=== PATIENT | female | born 1985 | race Caucasian/White ===

== ENCOUNTER → 2016-10-30 | Outpatient (CLI) | payer OTHER ==
[2016-10-30 12:48] LABS: CH 29.3; CHCM 34.5; HCT 40.7 % (34.0-46.0); HDW 2.54; HGB 13.6 gm/dL (11.4-16.0); MCH 28.6 pg (25.0-35.0); MCHC 33.5 g/dL (31.0-37.0); MCV 85.3 fL (80.0-100.0); Mean Platelet Volume 7.3; RBC 4.77 m/uL (3.80-5.40); RDW 14.6 % (11.5-15.5); WBC 9.9 k/uL (3.8-10.6)
[2016-10-30 12:57] LABS: Glucose 104 mg/dL (74-99); Non-African American GFR(MDRD) >60 (>60 ml/min/1.73 sqM)
[2016-10-30 13:28] LABS: Hepatitis B Surface Ag Index 0.05
[2016-10-30 20:01] LABS: Treponemal Ab Non-Reactive (Non-Reactive)
== END | disposition home or self-care (01) ==
LOC: LABWHC1 11:58
PROVIDERS: ATTEND Obstetrics & Gynecology
DX: Z34.81 Encounter for supervision of other normal pregnancy, first trimester (principal); Z3A.00 Weeks of gestation of pregnancy not specified
CPT/HCPCS: 36415; 82565; 82947; 85027; 86762; 86780; 86850; 86900; 86901; 87340; 87390

== ENCOUNTER → 2017-03-11 | Outpatient (CLI) | payer OTHER ==
[2017-03-11 10:17] LABS: HCT 35.1 % (34.0-46.0); HGB 11.4 gm/dL (11.4-16.0); MCH 28.8 pg (25.0-35.0); MCHC 32.6 g/dL (31.0-37.0); MCV 88.5 fL (80.0-100.0); Mean Platelet Volume 7.1; Platelet Count 339 k/uL (150-450); RBC 3.96 m/uL (3.80-5.40); RDW 13.7 % (11.5-15.5)
== END | disposition home or self-care (01) ==
LOC: LABWHC1 08:57
PROVIDERS: ATTEND Obstetrics & Gynecology
DX: Z34.82 Encounter for supervision of other normal pregnancy, second trimester (principal); Z3A.00 Weeks of gestation of pregnancy not specified
CPT/HCPCS: 36415; 82950; 85027

== ENCOUNTER 2017-04-28 17:09 | Outpatient (CLI) | payer OTHER ==
[2017-04-28 17:47] VITALS: BP 125/62; PULSE 53; RESP 20; TEMP 97.7
--- NOTE | 2017-05-21 19:12 | P.MSEPDOC ---
Presenting Problems - Arrival Data Date of Arrival on Unit: 04/28/17 Time of Arrival on Unit: 17:13 Mode of Transport: Ambulatory - Complaint OB-Reason for Admission/Chief Complaint: Other Comment: pt feel at around 330 pm on her daughters tricycle denies any direct blows to the abd area Medical History - Information : 3 Para: 1 Term: 1 : 0 Abortions: Spontaneous or Elective: 1 Number of Living Children: 1 - Gestational Age Gestational Age by REYMUNDO (wks/days): 32 Weeks and 3 Days - History Complications: No Care Review of Systems - Review of Systems Constitutional: No problems Breast: No problems ENT: No problems Cardiovascular: No problems Respiratory: No problems Gastrointestinal: No problems Genitourinary: No problems Musculoskeletal: No problems Neurological: No problems Skin: No problems Vital Signs - Temperature Temperature: 97.7 F Temperature Source: Oral - Pulse Right Brachial Pulse Rate: 53 Pulse Assessment Method: Automatic Cuff - Respirations Respiratory Rate: 20 Oxygen Delivery Method: Room Air - Blood Pressure Right Arm Blood Pressure: 125/62 Blood Pressure Mean: 83 Blood Pressure Source: Automatic Cuff Medical Screen Scoring (Pre) - Cervical Exam Dilation: 0 cm = 0 Membranes: Intact - Uterine Contractions Frequency: < 36 weeks = 6 Duration: > 40 seconds = 2 - Maternal Vital Signs Maternal Temperature: N/A Maternal Blood Pressure: N/A Signs of Preeclampsia: N/A Maternal Respirations: N/A - Pain Assessment Pain Scale Used: Numeric (1 - 10) Pain Intensity: 0 Pain Management Goal: 0 Pain Behavior: Vocalization - Assessment Baseline FHR: 140 Heart Rate - NICHD Category: Category I (Normal) = 0 NST: Reactive Position: N/A - Total Score Total Score (Pre): 8 Physician Notification (Pre) - Notification Comment Comment: dr mcgarry at bedside reviewed strip and vag exam done per dr mcgarry pts cervix closed and thick Physician Notification (Post) - Notification Comment Comment: pt discharged to home undelivered with instructions Disposition - Disposition OB Disposition: Discharge to home Discharge Date: 04/28/17 Discharge Time: 18:15 I agree with the RN Medical Screening Exam: Yes Risk & Benefit of care provided described in d/c instruction: Yes Diagnosis: ACUTE PAIN DUE TO TRAUMA
== END 2017-04-28 18:15 | disposition home or self-care (01) ==
LOC: FBPOP 17:09
PROVIDERS: ATTEND Obstetrics & Gynecology
DX: O9A.213 Injury, poisoning and certain other consequences of external causes complicating pregnancy, third trimester (principal); Z3A.32 32 weeks gestation of pregnancy
CPT/HCPCS: 59025; 99213

== ENCOUNTER 2017-06-13 05:51 | Inpatient (IN) | payer OTHER ==
[2017-06-11 14:38] VITALS: BMI 32.2
--- NOTE | 2017-06-12 12:54 | P.HPOB ---
History of Present Illness H&P Date: 06/12/17 Chief Complaint: Pt is presenting for repeat cesearan section. This patient is a pleasant 32 yr EDC 06/20/2017 estimated gestational age 39 weeks who presents to L&D for repeat cesearan section. has been uncomplicated with the exception of macrosomia. Patient had a previous C/ s for macrosomia. Review of Systems Gastrointestinal: Reports heartburn Genitourinary: Reports Menstruation: Reports amenorrhea Past Medical History Past Medical History: No Reported History Additional Past Medical History / Comment(s): mitral valve regurg with frequent PVC's History of Any Multi-Drug Resistant Organisms: None Reported Past Surgical History: Section Additional Past Surgical History / Comment(s): WISDOM TEETH, D&C Past Anesthesia/Blood Transfusion Reactions: No Reported Reaction, Motion Sickness Past Psychological History: No Psychological Hx Reported Smoking Status: Never smoker Past Alcohol Use History: None Reported Additional Past Alcohol Use History / Comment(s): PRIOR TO Past Drug Use History: None Reported - Past Family History Mother Family Medical History: No Reported History Medications and Allergies Home Medications Medication Instructions Recorded Confirmed Type Pnv with Ca,No.72/Iron/FA 1 each PO DAILY 12/12/13 06/11/17 History [ Plus Multivitamin Tab] Allergies Allergy/AdvReac Type Severity Reaction Status Date / Time No Known Allergies Allergy Verified 06/11/17 14:34 Exam - OBG Physical Exam Abdomen: bowel sounds normal, no diffuse tenderness, no bruit present, no guarding noted, no hepatomegaly, no splenomegaly, no mass Vulva: both: normal Vagina: normal moisture, no discharge Cervix: no lesion (Cx was closed in the office), no discharge Results blood work shows: O positive, Rubella Immune, [id number] neg, glucola was normal, GBS negative. Ultrasound shows macrosomia. Assessment and Plan Assessment: This is a pleasant 32 yr old female 39wks gestation who presents for repeat section. She barrett not want a tubal ligation. She and I have discussed this surgery and risks: infection, bleeding, possible injury to bowel /bladder/vessels/other organs. She understands the risk of DVT/PE. All of the patients questions were answered and a written consent obtained. (1) macrosomia during in third trimester Status: Acute Code(s): O36.63X0 - MATERNAL CARE FOR EXCESS GROWTH, THIRD TRIMESTER, UNSP SNOMED Code(s): 289517973 (2) Previous delivery affecting Status: Acute Code(s): O34.219 - MATERNAL CARE FOR UNSP TYPE SCAR FROM PREVIOUS DEL SNOMED Code(s): 516456502
[2017-06-13] MEDS ORDERED: CITRIC ACID-SODIUM CITRATE 15 ML CUP PO ONE (05:57)
[2017-06-13] MEDS ORDERED: LACTATED RINGERS 1,000 ML IV SCH (05:57)
[2017-06-13] MEDS ORDERED: LACTATED RINGERS 1,000 ML IV ONE (05:57)
[2017-06-13 06:21] LABS: Basophils % (A) 0 %; Eosinophils # (A) 0.2 k/uL (0-0.7); Eosinophils % (A) 2 %; HCT 34.2 % (34.0-46.0); Lymphocytes # (A) 1.5 k/uL (1.0-4.8); Lymphocytes % (A) 17 %; MCHC 32.1 g/dL (31.0-37.0); Mean Platelet Volume 7.3; Monocytes # (A) 0.5 k/uL (0-1.0); Monocytes % (A) 5 %; Neutrophils # (A) 6.6 k/uL (1.3-7.7); Neutrophils % (A) 75 %; Platelet Count 319 k/uL (150-450); RBC 4.39 m/uL (3.80-5.40); RDW 15.2 % (11.5-15.5); WBC 8.9 k/uL (3.8-10.6)
[2017-06-13] MEDS ORDERED: ceFAZolin IN SWFI 2 GM/20 ML SYRINGE IVP ONE (07:15)
[2017-06-13] MEDS ORDERED: OXYTOCIN 10 UNIT/ML 1 ML VIAL ONE (07:44)
[2017-06-13] MEDS ORDERED: NALBUPHINE 10 MG/ML AMPUL ONE (07:44)
[2017-06-13] MEDS ORDERED: ONDANSETRON 4 MG/2 ML VIAL ONE (07:44)
[2017-06-13] MEDS ORDERED: MORPHINE SULFATE (PF) 0.3 MG/0.3 ML SYR ONE (07:44)
[2017-06-13] MEDS ORDERED: KETOROLAC 30 MG/ML 1 ML VIAL ONE (07:44)
[2017-06-13] MEDS ORDERED: LANOLIN CREAM 5 GM TUBE TOPICAL PRN (08:27)
[2017-06-13] MEDS ORDERED: KETOROLAC 30 MG/ML 1 ML VIAL IVP PRN (08:27)
[2017-06-13] MEDS ORDERED: ONDANSETRON 4 MG/2 ML VIAL IVP PRN (08:27)
[2017-06-13] MEDS ORDERED: OXYTOCIN 20 UNITS/1000 ML NS 1,000 ML IV SCH (08:27)
[2017-06-13] MEDS ORDERED: NALOXONE 0.4 MG/ML 1 ML VIAL IV PRN (08:27)
[2017-06-13] MEDS ORDERED: ACETAMINOPHEN TAB 325 MG TAB PO PRN (08:27)
[2017-06-13] MEDS ORDERED: METOCLOPRAMIDE 5 MG/ML 2 ML VIAL IVP PRN (08:27)
[2017-06-13] MEDS ORDERED: ZOLPIDEM 5 MG TAB PO PRN (08:27)
[2017-06-13] MEDS ORDERED: diphenhydrAMINE 50 MG/ML 1 ML VIAL IVP PRN (08:27)
[2017-06-13] MEDS ORDERED: SIMETHICONE 80 MG CHEWABLE PO PRN (08:27)
[2017-06-13] MEDS ORDERED: diphenhydrAMINE 25 MG CAP PO PRN (08:27)
--- NOTE | 2017-06-13 08:29 | P.OP ---
Date of Procedure: 06/13/17 Preoperative Diagnosis: #1: 39-0/7 weeks . #2: Previous section desires repeat. #3: macrosomia Postoperative Diagnosis: Same Procedure(s) Performed: Repeat low transverse section. Anesthesia: spinal Surgeon: Logan Paige [employer] Field Coordinator #1: Juli Ramirez Estimated Blood Loss (ml): 800 Pathology: other (Placenta) Condition: stable Disposition: floor Indications for Procedure: Please see dictated H&P for intimate details of this patient's admission. Brief summary this is a pleasant 32-year-old 3 para 1 female 39 weeks gestation admitted for elective repeat section. Patient I have discussed the surgery and risks including risks of infection, bleeding, possible injury bowel, bladder, vessels, and/or other organs. All the patient' s questions have been answered and a written consent is obtained. Operative Findings: This is a vigorous viable male infant Apgars were 8 and 8 delivery time is 0804 hrs. has spontaneous respiration and good cry and grossly appeared normal. Description of Procedure: This patient is taken to the operating room. She previously had a Hernandez catheter placed to straight drain. Patient is set up for spinal anesthetic is administered without incident. With an adequate level of anesthesia she has abdominal prep and drape. Scalpels and taken the previous Pfannenstiel incision is incised. A second scalpel is taken down the fascia and the fascia scored with a knife. Fascial incision extended bilaterally using the Mireles scissors. Fascia is then sharply dissected off the rectus muscles. Rectus muscles are the peritoneum was identified and entered sharply. Peritoneal incision extended superior and inferior without difficulty. Latter blade is then placed. Bladder peritoneum was taken sharply off the lower uterine segment. Scalpels and taken a low transverse uterine incision is made. There is loss of clear fluid. This incision is extended bluntly. Infant's head is then gently delivered through the incision with fundal pressure. Mouth and nose are suctioned. There is a nuchal cord which is very loose and reduced. We then deliver the rest this infant's body. This is a vigorous viable male Apgars are 8 and 8 delivery time is 0804 hrs. After delivery of the the umbilical cord is doubly clamped and cut appears to be trivascular. The placenta is then manually extracted intact. The uterus is then externalized and uterine incision is then closed using 0 Vicryl running locked fashion. Excellent hemostasis is noted bladder peritoneum was then closed using a 3-0 Vicryl in a running fashion. Excess fluid is removed from the abdomen and pelvis. Uterus tubes and ovaries appear normal for term gestation. Uterus placed back into the abdomen. This time the parietal peritoneum was identified and closed using 0 Vicryl running fashion. Rectus muscles are reapproximated in 0 Vicryl interrupted fashion. Fascia is then closed using 0 PDS. Fascial incision is intact and hemostatic. Subcutaneous tissues and closed using a 3-0 Vicryl. Skin is and closed using aicha. All counts are correct 3. There are no complications. Patient is taken to her birthing suite in satisfactory condition.
[2017-06-13] MEDS: SENNOSIDES-DOCUSATE SODIUM 1 EACH TAB PO SCH (09:07)
[2017-06-13] MEDS: LACTATED RINGERS 1,000 ML IV SCH ×2 (15:15→16:36)
[2017-06-14] MEDS: SENNOSIDES-DOCUSATE SODIUM 1 EACH TAB PO SCH ×3 (01:57→21:11)
[2017-06-14] MEDS: IBUPROFEN 600 MG TAB PO PRN ×3 (02:03→18:20)
--- NOTE | 2017-06-14 06:43 | P.PNOBGPC ---
Subjective - Subjective Patient reports: Reports appetite normal, Reports voiding normally, Reports pain well controlled, Reports ambulating normally : doing well Objective - Vital Signs Latest vital signs: Vital Signs Temp Pulse Pulse Resp BP Pulse Ox 06/14/17 06:00 16 06/14/17 04:00 97.8 F 44 L 16 100/51 100 06/14/17 02:00 16 06/14/17 00:00 98.7 F 47 L 16 104/50 100 06/13/17 22:00 16 100 06/13/17 20:00 98.1 F 54 L 16 119/72 100 06/13/17 18:00 16 06/13/17 16:00 98.3 F 49 L 16 112/60 99 06/13/17 14:00 16 06/13/17 11:06 96.4 F L 42 L 16 102/51 99 06/13/17 10:30 88 16 103/57 100 06/13/17 10:00 65 16 101/55 99 06/13/17 09:30 52 L 16 110/56 99 06/13/17 09:15 46 L 16 109/55 99 06/13/17 09:00 81 16 105/59 99 06/13/17 08:45 58 L 16 94/52 98 06/13/17 08:30 96.8 F L 54 L 54 L 16 102/63 Intake and Output 06/13/17 06/13/17 06/14/17 14:59 22:59 06:59 Intake Total 800 Output Total 800 1300 Balance -800 -1300 800 Intake: Oral 800 Output: Urine 800 1300 Uretheral (Hernandez) 200 Other: # Voids 1 - Exam Lungs: bilateral: normal Chest: Normal S1, Normal S2 Extremities: Present: normal Abdomen: Present: normal appearance, soft. Absent: distention, tenderness Incision: Present: normal, dry, intact Uterus: Present: normal, firm Assessment and Plan Assessment: Postoperative day #1. Patient is resting without complaints. She is ambulating and urinating without difficulty. She's tolerating regular diet. Vital signs are stable she is afebrile. Incision is intact and dry. CBC is pending. My impression this is a normal postoperative course. Plan is to continue routine postoperative care, allow the patient to shower, and check a CBC. Most likely will go home tomorrow. (1) macrosomia during in third trimester Current Visit: No Status: Acute Code(s): O36.63X0 - MATERNAL CARE FOR EXCESS GROWTH, THIRD TRIMESTER, UNSP SNOMED Code(s): 551933242 (2) Previous delivery affecting Current Visit: Yes Status: Acute Code(s): O34.219 - MATERNAL CARE FOR UNSP TYPE SCAR FROM PREVIOUS DEL SNOMED Code(s): 162575955
[2017-06-14 08:59] LABS: Basophils % (A) 0 %; Eosinophils # (A) 0.1 k/uL (0-0.7); Eosinophils % (A) 0 %; HCT 31.1 % (34.0-46.0); HGB 10.2 gm/dL (11.4-16.0); Hypochromasia Slight; Lymphocytes # (A) 1.4 k/uL (1.0-4.8); Lymphocytes % (A) 11 %; MCHC 32.7 g/dL (31.0-37.0); MCV 79.5 fL (80.0-100.0); Mean Platelet Volume 7.4; Monocytes # (A) 0.4 k/uL (0-1.0); Monocytes % (A) 4 %; Neutrophils # (A) 10.1 k/uL (1.3-7.7); Neutrophils % (A) 83 %; Platelet Count 323 k/uL (150-450); Poikilocytosis Slight; RBC 3.91 m/uL (3.80-5.40); RDW 15.4 % (11.5-15.5); WBC 12.2 k/uL (3.8-10.6)
--- NOTE | 2017-06-14 16:51 | P.PN ---
Progress Note - Text Progress Note Date: 06/14/17 Postoperative day 1 status post section under spinal anesthesia, and intrathecal morphine given for postoperative analgesia, patient doing well, there is no anesthesia related complications, Patient had no headache, vital signs stable , Assessment and plan= postop day 1 status post , doing well there is no anesthesia related complication.
[2017-06-15] MEDS: IBUPROFEN 600 MG TAB PO PRN ×2 (03:06→09:09)
--- NOTE | 2017-06-15 06:33 | P.PNOBGPC ---
Subjective - Subjective Patient reports: Reports appetite normal, Reports voiding normally, Reports pain well controlled, Reports ambulating normally : doing well Objective - Vital Signs Latest vital signs: Vital Signs Temp Pulse Pulse Resp BP Pulse Ox 06/14/17 23:33 98.4 F 85 16 103/62 100 06/14/17 15:11 84 16 127/69 98 06/14/17 07:30 97.8 F 48 L 16 114/52 Intake and Output 06/14/17 06/14/17 06/15/17 14:59 22:59 06:59 Intake Total 1000 Balance 1000 Intake: Oral 1000 - Exam Lungs: bilateral: normal Chest: Normal S1, Normal S2 Extremities: Present: normal Abdomen: Present: normal appearance, soft. Absent: distention, tenderness Incision: Present: normal, dry, intact Uterus: Present: normal, firm - Labs Labs: Abnormal Lab Results - Last 24 Hours (Table) 06/14/17 Range/Units 08:04 WBC 12.2 H (3.8-10.6) k/uL Hgb 10.2 L (11.4-16.0) gm/dL Hct 31.1 L (34.0-46.0) % MCV 79.5 L (80.0-100.0) fL Neutrophils # 10.1 H (1.3-7.7) k/uL Assessment and Plan Assessment: Post operative day #2. Patient's resting without complaints wishes to go home. Vital signs are stable and she is afebrile. Uterus is firm nontender and her incision is intact and dry. CBC yesterday was normal postoperative. Plan today is to continue routine postoperative care discharge home later today (1) macrosomia during in third trimester Current Visit: No Status: Acute Code(s): O36.63X0 - MATERNAL CARE FOR EXCESS GROWTH, THIRD TRIMESTER, UNSP SNOMED Code(s): 627347174 (2) Previous delivery affecting Current Visit: Yes Status: Acute Code(s): O34.219 - MATERNAL CARE FOR UNSP TYPE SCAR FROM PREVIOUS DEL SNOMED Code(s): 921769485
--- NOTE | 2017-06-15 06:42 | P.DS ---
Providers Date of admission: 06/13/17 05:51 Expected date of discharge: 06/15/17 Attending physician: Logan Paige Primary care physician: Stated None - Discharge Diagnosis(es) (1) macrosomia during in third trimester Current Visit: No Status: Acute (2) Previous delivery affecting Current Visit: Yes Status: Acute Hospital Course: Please see dictated H&P for intimate details of this patient's admission. Brief summary this is a pleasant 32-year-old 3 para 1 female 39 weeks gestation admitted to labor and delivery for elective repeat section. Patient underwent repeat low transverse section for viable male infant. Please see dictated delivery note. hemorrhage 2 patient's felt be stable for discharge home follow up with me in 1 week. Procedures: Repeat low transverse section Patient Condition at Discharge: Good Plan - Discharge Summary Discharge Rx Participant: Yes New Discharge Prescriptions: New Ibuprofen [Motrin] 600 mg PO Q6HR PRN #40 tab PRN Reason: Mild Pain Or Fever >= 100.5 No Action Pnv with Ca,No.72/Iron/FA [ Plus Multivitamin Tab] 1 each PO DAILY Discharge Medication List Pnv with Ca,No.72/Iron/FA [ Plus Multivitamin Tab] 1 each PO DAILY 12/12 [History] Ibuprofen [Motrin] 600 mg PO Q6HR PRN #40 tab 06/15/17 [Rx] Follow up Appointment(s)/Referral(s): Logan Paige MD [STAFF PHYSICIAN] - 06/23/17 1:30 pm (Patient also has a visit on July 31 at 9:15 AM.) Patient Instructions/Handouts: (DC) Activity/Diet/Wound Care/Special Instructions: No strenuous activity or heavy lifting for 6 weeks. No intercourse for 6 weeks. Please call if any fever, chills, excessive vaginal bleeding, and/or abdominal pain. Discharge Disposition: HOME SELF-CARE
[2017-06-15 07:43] VITALS: BP 123/56; PULSE 45; RESP 15; TEMP 97.5
[2017-06-15] MEDS: SENNOSIDES-DOCUSATE SODIUM 1 EACH TAB PO SCH (09:09)
== END 2017-06-15 11:48 | disposition home or self-care (01) | DRG 765 ==
LOC: 4FBP 05:51
PROVIDERS: ADMIT Obstetrics & Gynecology; ATTEND Obstetrics & Gynecology
PROC: 10D00Z1 Extraction of Products of Conception, Low, Open Approach (ICD-10-PCS; principal; 2017-06-13 08:00)
DX: O36.63X0 Maternal care for excessive fetal growth, third trimester, not applicable or unspecified (principal); O99.12 Other diseases of the blood and blood-forming organs and certain disorders involving the immune mechanism complicating childbirth; Z37.0 Single live birth; O34.211 Maternal care for low transverse scar from previous cesarean delivery; I34.0 Nonrheumatic mitral (valve) insufficiency; I49.3 Ventricular premature depolarization; O69.81X0 Labor and delivery complicated by cord around neck, without compression, not applicable or unspecified; Z3A.39 39 weeks gestation of pregnancy
CPT/HCPCS: 85025; 86850; 86900; 86901; 88307

== ENCOUNTER 2019-10-08 09:15 | Outpatient (CLI) | payer OTHER ==
[2019-10-08 10:17] LABS: Basophils % (A) 0 %; Eosinophils # (A) 0.1 k/uL (0-0.7); Eosinophils % (A) 1 %; HCT 29.2 % (34.0-46.0); HGB 9.9 gm/dL (11.4-16.0); Lymphocytes # (A) 1.7 k/uL (1.0-4.8); Lymphocytes % (A) 22 %; MCH 29.8 pg (25.0-35.0); MCHC 33.9 g/dL (31.0-37.0); MCV 87.8 fL (80.0-100.0); Mean Platelet Volume 7.4; Monocytes # (A) 0.3 k/uL (0-1.0); Monocytes % (A) 4 %; Neutrophils # (A) 5.6 k/uL (1.3-7.7); Neutrophils % (A) 71 %; Platelet Count 288 k/uL (150-450); Poikilocytosis Slight; RBC 3.33 m/uL (3.80-5.40); RDW 14.6 % (11.5-15.5); WBC 7.9 k/uL (3.8-10.6)
[2019-10-08 10:18] LABS: Appearance,Urine Clear (Clear); Bilirubin,Urine Negative (Negative); Blood,Urine Negative (Negative); Color,Urine Light Yellow; Glucose,Urine (UA) Negative (Negative); Ketones,Urine Negative (Negative); Leukocyte Esterase,Urine Negative (Negative); Nitrite,Urine Negative (Negative); PH, Urine 6.5 (5.0-8.0); Protein,Urine Negative (Negative); Specific Gravity,Urine 1.007 (1.001-1.035); Urobilinogen,Urine <2.0 mg/dL (<2.0)
[2019-10-08 10:31] LABS: ALT 11 U/L (4-34); AST 20 U/L (14-36); African American GFR (CKD) >90 (>60 ml/min/1.73 sqM); Blood Urea Nitrogen 4 mg/dL (7-17); LDH 409 U/L (313-618); Non-African American GFR(CKD) >90 (>60 ml/min/1.73 sqM); Protein/Creatinine Ratio,Urine 0.606; Uric Acid 3.8 mg/dL (3.7-7.4)
--- NOTE | 2019-10-09 07:24 | P.MSEPDOC ---
Presenting Problems - Arrival Data Date of Arrival on Unit: 10/08/19 Time of Arrival on Unit: 09:15 Mode of Transport: Ambulatory - Complaint OB-Reason for Admission/Chief Complaint: PIH Comment: pt sent over from the office for pih workup with written orders Medical History - Gestational Age Gestational Age by REYMUNDO (wks/days): 29 Weeks and 2 Days Review of Systems - Review of Systems Constitutional: No problems Breast: No problems ENT: No problems Cardiovascular: No problems Respiratory: No problems Gastrointestinal: No problems Genitourinary: No problems Musculoskeletal: No problems Neurological: No problems Skin: No problems Physician Notification (Pre) - Physician Notified Physician Notified Date: 10/08/19 Physician Notified Time: 11:00 New Order Received: Yes - Notification Comment Comment: discharged home, follow up in 2 weeks Disposition - Disposition OB Disposition: Triage, Discharge to home, Written follow up instructions reviewed Discharge Date: 10/08/19 Discharge Time: 11:05 I agree with the RN Medical Screening Exam: Yes Risk & Benefit of care provided described in d/c instruction: Yes Diagnosis: GESTATIONAL HTN W/O SIGNIFICANT PROTEINURIA, THIRD TRIMESTER
== END 2019-10-08 11:05 | disposition home or self-care (01) ==
LOC: FBPOP 09:15
PROVIDERS: ATTEND Obstetrics & Gynecology
DX: O13.3 Gestational [pregnancy-induced] hypertension without significant proteinuria, third trimester (principal); Z3A.29 29 weeks gestation of pregnancy
CPT/HCPCS: 59025; 81003; 82565; 82570; 83615; 84156; 84450; 84460; 84520; 84550; 85025

== ENCOUNTER 2019-12-15 05:50 | Inpatient (IN) | payer OTHER ==
--- NOTE | 2019-12-14 06:50 | P.HPOB ---
History of Present Illness H&P Date: 12/14/19 Chief Complaint: Repeat section and tubal ligation This patient is a pleasant 34-year-old 4 para 2 female estimated date of confinement 12/22/2019 estimated gestational age 39 weeks who presents to labor and delivery for requested repeat section and also requesting permanent sterilization. Patient's care has been uncomplicated. Patient's had 2 previous sections for macrosomia. Review of Systems Genitourinary: Reports Menstruation: Reports amenorrhea Past Medical History Past Medical History: No Reported History Additional Past Medical History / Comment(s): mitral valve regurg with frequent PVC's History of Any Multi-Drug Resistant Organisms: None Reported Past Surgical History: Section Additional Past Surgical History / Comment(s): WISDOM TEETH, D&C Past Anesthesia/Blood Transfusion Reactions: No Reported Reaction, Motion Sickness Past Psychological History: No Psychological Hx Reported Smoking Status: Never smoker Past Alcohol Use History: None Reported Past Drug Use History: None Reported - Past Family History Mother Family Medical History: No Reported History Medications and Allergies Home Medications Medication Instructions Recorded Confirmed Type Pnv with Ca,No.72/Iron/FA 1 each PO DAILY 12/12/13 10/08/19 History [ Plus Multivitamin Tab] Acetaminophen [Tylenol] 1,000 mg PO QID 10/08/19 10/08/19 History Allergies Allergy/AdvReac Type Severity Reaction Status Date / Time No Known Allergies Allergy Verified 10/08/19 09:27 Exam - OBG Physical Exam Abdomen: bowel sounds normal, no diffuse tenderness, no bruit present, no guarding noted, no hepatomegaly, no splenomegaly, no mass Vulva: both: normal Vagina: normal moisture, no discharge Cervix: no lesion, no discharge Uterus: enlarged (Fundal height is slightly larger than gestational age) Results blood work shows she is O positive, rubella immune, RPR nonreactive, hepatitis B negative, HIV is nonreactive, Glucola was normal, group B strep was negative, ultrasounds shows normal anatomy. Assessment and Plan Assessment: This is a pleasant 34-year-old 4 para 2 female 39-0/7 weeks gestation is admitted to labor and delivery for elective repeat section and also requesting permanent sterilization. Plan is repeat low transverse section and bilateral partial salpingectomy. Patient understands this surgery and risks including risks of infection, bleeding, possible injury bowel, bladder, vessels, and/or other organs. She also understands a tubal ligation is considered permanent although there is a failure rate of less than 5 per thousand procedures done. Patient is stands risk of DVT and pulmonary embolism. All the patient's questions are answered and a written consent is obtained. (1) 39 weeks gestation of Status: Acute Code(s): Z3A.39 - 39 WEEKS GESTATION OF SNOMED Code(s): 51056838 (2) Previous delivery affecting Status: Acute Code(s): O34.219 - MATERNAL CARE FOR UNSP TYPE SCAR FROM PREVIOUS DEL SNOMED Code(s): 234175104 (3) Family planning Status: Acute Code(s): Z30.09 - ENCOUNTER FOR OTH GENERAL CNSL AND ADVICE ON CONTRACEPTION SNOMED Code(s): 877709881
[2019-12-15] MEDS ORDERED: CITRIC ACID-SODIUM CITRATE 15 ML CUP PO ONE (06:02)
[2019-12-15] MEDS ORDERED: LACTATED RINGERS 1,000 ML IV ONE (06:02)
[2019-12-15] MEDS: LACTATED RINGERS 1,000 ML IV SCH ×3 (06:13→15:46)
[2019-12-15 06:30] LABS: Basophils % (A) 0 %; Eosinophils # (A) 0.1 k/uL (0-0.7); Eosinophils % (A) 1 %; HCT 33.7 % (34.0-46.0); HGB 10.7 gm/dL (11.4-16.0); Hypochromasia Moderate; Lymphocytes # (A) 1.8 k/uL (1.0-4.8); Lymphocytes % (A) 23 %; MCH 26.2 pg (25.0-35.0); MCHC 31.6 g/dL (31.0-37.0); Mean Platelet Volume 7.4; Monocytes # (A) 0.4 k/uL (0-1.0); Monocytes % (A) 5 %; Neutrophils # (A) 5.4 k/uL (1.3-7.7); Neutrophils % (A) 69 %; Platelet Count 326 k/uL (150-450); Poikilocytosis Slight; RBC 4.06 m/uL (3.80-5.40); RDW 15.4 % (11.5-15.5); WBC 7.9 k/uL (3.8-10.6)
[2019-12-15] MEDS ORDERED: MORPHINE SULFATE (PF) 0.3 MG/0.3 ML SYR ONE (08:24)
[2019-12-15] MEDS ORDERED: KETOROLAC 15 MG/ML 1 ML VIAL ONE (08:24)
[2019-12-15] MEDS ORDERED: OXYTOCIN 10 UNIT/ML 1 ML VIAL ONE (08:24)
[2019-12-15] MEDS ORDERED: ZOLPIDEM 5 MG TAB PO PRN (09:19)
[2019-12-15] MEDS ORDERED: KETOROLAC 15 MG/ML 1 ML VIAL IVP PRN (09:19)
[2019-12-15] MEDS ORDERED: LANOLIN CREAM 5 GM TUBE TOPICAL PRN (09:19)
[2019-12-15] MEDS ORDERED: METOCLOPRAMIDE 5 MG/ML 2 ML VIAL IVP PRN (09:19)
[2019-12-15] MEDS ORDERED: ONDANSETRON 4 MG/2 ML VIAL IVP PRN (09:19)
[2019-12-15] MEDS ORDERED: SIMETHICONE 80 MG CHEWABLE PO PRN (09:19)
[2019-12-15] MEDS ORDERED: diphenhydrAMINE 25 MG CAP PO PRN (09:19)
[2019-12-15] MEDS ORDERED: NALOXONE 0.4 MG/ML 1 ML VIAL IV PRN ×2 (09:19→12:23)
[2019-12-15] MEDS ORDERED: diphenhydrAMINE 50 MG/ML 1 ML VIAL IVP PRN (09:19)
[2019-12-15] MEDS ORDERED: ACETAMINOPHEN TAB 325 MG TAB PO PRN (09:19)
--- NOTE | 2019-12-15 09:28 | P.OP ---
Date of Procedure: 12/15/19 Preoperative Diagnosis: #1: 39-0/7 week intrauterine . #2: Previous section 2 desires repeat. #3: Multi parity desires permanent sterilization Postoperative Diagnosis: Same Procedure(s) Performed: Repeat low transverse section and bilateral partial salpingectomy Anesthesia: spinal Surgeon: Logan Paige Radiator Specialist #1: hTo Henry Estimated Blood Loss (ml): 800 Pathology: other (Bilateral fallopian tube segments) Condition: stable Disposition: floor Indications for Procedure: Please see dictated H&P for intimate details of this patient's admission. Brief summary this is a pleasant 34-year-old 4 para 2 female estimated gestational age 39 weeks who presents to labor and delivery for elective repeat section and also requesting permanent sterilization. Patient understands that a tubal ligation is considered permanent, however there is a failure rate of less than 5 per thousand procedures done. She also understands that surgery itself and apparently has risks including risks of infection, bleed ing, possible injury to bowel, bladder, vessels, and/or other organs. All the patient's questions are answered and a written consent is obtained. Operative Findings: This is a vigorous viable male infant Apgars 8 and 8 delivery time was 0844 hrs. has spontaneous respiration and good cry and grossly appears normal. Fallopian tubes and bilateral ovaries and uterus appeared normal as well Description of Procedure: This patient has a Hernandez catheter placed to straight drain. She is subsequently taken to the operating room where she sat up and spinal anesthetic is administered without incident. With an adequate level of anesthesia she has abdominal prep and drape. Scalpels and taken the previous Pfannenstiel incision is incised. A second scalpel is taken down to the fascia and the fascia scored with a knife. Fascial incision extended bilaterally using the Mireles scissors. Fascia is then dissected off the rectus muscles sharply. Rectus muscles are then and the peritoneum identified and entered sharply. Peritoneal incision extended superior and inferior without difficulty. Bladder blade is then placed. The bladder peritoneum was taken sharply off the lower uterine segment. Scalpels then taken low transverse uterine incision is made. Using a hemostat I enter the uterine cavity bluntly and there is loss of clear fluid. Incision is then extended bluntly. 's head is then guided through the incision and with fundal pressure delivered. Mouth and nares are bulb suctioned. Is no evidence of a nuchal cord. We then have deliver the anterior and posterior shoulder and rest this 's body. This is a vigorous viable male infant Apgars are 8 and a written was 0844 hrs. has spontaneous re spiration and good cry and grossly appears normal. After delivery of the the umbilical cord is doubly clamped and cut appears to be trivascular. The placenta is then manually extracted intact. Uterus is then externalized. Excess tissue was removed and the uterine cavity and the edges are demarcated with Roger clamps. Uterine incision then closed using 0 Vicryl running fashion. This is done in 2 layers in excellent hemostasis is noted. Then turned my attention the left fallopian tube approximately 4 cm from the cornual insertion a small window made to the mesial salpinx with Bovie cautery. Using 2-0 silk I doubly ligate a 2 cm segment of the left fallopian tube. This is then excised with Metzenbaum scissors. Cauterization is done of the tubal ends. Then turned my attention of the right fallopian tube using a similar technique a segment of the right fallopian tube is excised again good hemostasis is noted. This done excess fluid is removed from the abdomen and pelvis. Uterus is placed back into the abdomen. Final inspection of the tubes and ovaries. On to be hemostatic. The parietal peritoneum was then closed using 0 Vicryl running fashion. Rectus muscles reapproximated in 0 Vicryl interrupted fashion. Fascial incision closed using 0 PDS. Fascial incision is intact and hemostatic. Subcutaneous tissues and closed using a 3-0 Vicryl. Skin is and closed using aicha. All counts are correct 3. Complications. and mother are taken the birthing suite in satisfactory condition.
[2019-12-15] MEDS ORDERED: OXYTOCIN 20 UNITS/1000 ML NS 1,000 ML IV SCH (09:30)
[2019-12-15] MEDS ORDERED: HYDROmorphone 0.5 MG/0.5 ML SYRINGE IVP PRN (12:23)
[2019-12-15] MEDS: SENNOSIDES-DOCUSATE SODIUM 1 EACH TAB PO SCH (19:51)
[2019-12-15] MEDS: HYDROcodone/APAP 5-325MG 1 EACH TAB PO PRN (23:46)
[2019-12-16] MEDS: IBUPROFEN 600 MG TAB PO PRN ×2 (05:42→19:42)
[2019-12-16 05:55] LABS: Basophils % (A) 0 %; Eosinophils % (A) 0 %; HCT 24.5 % (34.0-46.0); Hypochromasia Slight; Lymphocytes # (A) 1.4 k/uL (1.0-4.8); Lymphocytes % (A) 15 %; MCH 26.2 pg (25.0-35.0); Mean Platelet Volume 8.5; Monocytes # (A) 0.3 k/uL (0-1.0); Monocytes % (A) 4 %; Neutrophils # (A) 7.1 k/uL (1.3-7.7); Neutrophils % (A) 78 %; Platelet Count 273 k/uL (150-450); Poikilocytosis Slight; RBC 2.99 m/uL (3.80-5.40); RDW 15.6 % (11.5-15.5)
[2019-12-16 06:08] LABS: HGB 7.8 gm/dL (11.4-16.0)
--- NOTE | 2019-12-16 06:15 | P.PNOBGPC ---
Subjective - Subjective Patient reports: Reports appetite normal, Reports voiding normally, Reports pain well controlled, Reports ambulating normally : doing well Objective - Vital Signs Latest vital signs: Vital Signs Temp Pulse Resp BP Pulse Ox 12/16/19 05:56 16 12/16/19 04:00 98.1 F 81 16 98/51 12/16/19 02:00 16 12/16/19 00:00 98.0 F 62 16 116/76 12/15/19 22:30 16 12/15/19 21:00 100 12/15/19 20:00 97.9 F 71 18 128/70 100 12/15/19 17:10 99 12/15/19 17:00 17 12/15/19 15:37 97.9 F 73 17 119/66 99 12/15/19 15:04 17 12/15/19 13:23 17 98 12/15/19 12:23 17 99 12/15/19 11:21 96.8 F L 67 16 117/55 100 12/15/19 11:10 96.8 F L 80 16 117/55 12/15/19 10:43 82 16 131/70 99 12/15/19 10:13 70 16 122/81 100 12/15/19 09:58 74 16 120/75 99 12/15/19 09:43 65 16 112/60 99 12/15/19 09:28 97 16 114/70 99 12/15/19 09:13 96.9 F L 76 18 112/59 99 Intake and Output 12/15/19 12/15/19 12/16/19 14:59 22:59 06:59 Intake Total 700 Output Total 1002 200 500 Balance -302 -200 -500 Intake: IV 500 Oral 200 Output: Urine 200 200 500 Uretheral (Hernandez) 100 Emesis 2 Estimated Blood Loss 800 Other: Voiding Method Indwelling Catheter Indwelling Catheter # Voids 0 - Exam Lungs: bilateral: normal Chest: Normal S1, Normal S2 Extremities: Present: normal Abdomen: Present: normal appearance, soft. Absent: distention, tenderness Incision: Present: normal, dry, intact Uterus: Present: normal, firm - Labs Labs: Abnormal Lab Results - Last 24 Hours (Table) 12/15/19 12/16/19 Range/Units 06:00 05:26 RBC 2.99 L (3.80-5.40) m/uL Hgb 10.7 L 7.8 L D (11.4-16.0) gm/dL Hct 33.7 L 24.5 L (34.0-46.0) % RDW 15.6 H (11.5-15.5) % Assessment and Plan Assessment: Post operative day #1. Patient is resting without complaints. Vital signs are stable she's afebrile. Removing a bandage she does have quite a bit of drainage that was on the bandage from yesterday and some ecchymosis on the right side. Patient states that she had a lot of nausea vomiting yesterday most likely resulting in this. Vital signs are stable. Incision appears intact with an area of ecchymosis. Hemoglobin today is 7.8 down from 10.7 yesterday. She is tolerating regular diet and ambulating and urinating without difficulty. Plan today is to continue routine postoperative care, start some chromogen. (1) 39 weeks gestation of Current Visit: No Status: Acute Code(s): Z3A.39 - 39 WEEKS GESTATION OF SNOMED Code(s): 33090281 (2) Previous delivery affecting Current Visit: No Status: Acute Code(s): O34.219 - MATERNAL CARE FOR UNSP TYPE SCAR FROM PREVIOUS DEL SNOMED Code(s): 174728151 (3) Family planning Current Visit: No Status: Acute Code(s): Z30.09 - ENCOUNTER FOR OTH GENERAL CNSL AND ADVICE ON CONTRACEPTION SNOMED Code(s): 579344293
--- NOTE | 2019-12-16 06:37 | P.PN ---
Progress Note - Text Progress Note Date: 12/16/19 Postoperative day 1 status post section under spinal anesthesia, and intrathecal morphine given for postoperative analgesia, patient doing well, there is no anesthesia related complications, Patient had no headache, vital signs stable , Assessment and plan= postop day 1 status post , doing well there is no anesthesia related complication.
[2019-12-16] MEDS: IRON AG/C/B12/CA/SUC.ACID/STOM 1 EACH TAB PO SCH (07:47)
[2019-12-16] MEDS: SENNOSIDES-DOCUSATE SODIUM 1 EACH TAB PO SCH ×2 (07:52→19:41)
[2019-12-16] MEDS: LACTATED RINGERS 1,000 ML IV SCH ×4 (08:12→14:35)
[2019-12-16] MEDS: HYDROcodone/APAP 5-325MG 1 EACH TAB PO PRN (14:14)
[2019-12-17] MEDS: IBUPROFEN 600 MG TAB PO PRN ×2 (05:43→17:51)
--- NOTE | 2019-12-17 06:44 | P.PNOBGPC ---
Subjective - Subjective Patient reports: Reports appetite normal, Reports voiding normally, Reports pain well controlled, Reports ambulating normally : doing well Objective - Vital Signs Latest vital signs: Vital Signs Temp Pulse Resp BP Pulse Ox 12/16/19 23:19 98.4 F 86 16 126/82 98 12/16/19 16:00 98.3 F 92 16 133/85 12/16/19 08:00 97.5 F L 84 15 108/55 98 - Exam Lungs: bilateral: normal Chest: Normal S1, Normal S2 Extremities: Present: normal Abdomen: Present: normal appearance, soft. Absent: distention, tenderness Incision: Present: normal, dry, intact Uterus: Present: normal, firm Assessment and Plan Assessment: Postoperative day #2. Patient is resting without new complaints. Vital signs are stable and she is afebrile. Ears is firm nontender and her incision is int act and dry. My impression is a normal postoperative course. She is chronic anemia with some surgical anemia as well. Continue iron therapy, and routine care (1) 39 weeks gestation of Current Visit: No Status: Acute Code(s): Z3A.39 - 39 WEEKS GESTATION OF SNOMED Code(s): 26810577 (2) Previous delivery affecting Current Visit: No Status: Acute Code(s): O34.219 - MATERNAL CARE FOR UNSP TYPE SCAR FROM PREVIOUS DEL SNOMED Code(s): 277774152 (3) Family planning Current Visit: No Status: Acute Code(s): Z30.09 - ENCOUNTER FOR OTH GENERAL CNSL AND ADVICE ON CONTRACEPTION SNOMED Code(s): 564532019
[2019-12-17] MEDS: IRON AG/C/B12/CA/SUC.ACID/STOM 1 EACH TAB PO SCH (08:21)
[2019-12-17] MEDS: SENNOSIDES-DOCUSATE SODIUM 1 EACH TAB PO SCH ×2 (08:21→20:17)
[2019-12-17 17:17] VITALS: RESP 16
[2019-12-17] MEDS: LACTATED RINGERS 1,000 ML IV SCH (20:16)
[2019-12-18] MEDS: IBUPROFEN 600 MG TAB PO PRN ×2 (03:20→13:42)
[2019-12-18] MEDS: LACTATED RINGERS 1,000 ML IV SCH (03:24)
--- NOTE | 2019-12-18 06:44 | P.PNOBGPC ---
Subjective - Subjective Patient reports: Reports appetite normal, Reports voiding normally, Reports pain well controlled, Reports ambulating normally : doing well Objective - Vital Signs Latest vital signs: Vital Signs Temp Pulse Resp BP Pulse Ox 12/18/19 00:00 97.9 F 81 16 127/71 98 12/17/19 16:00 89 16 133/73 98 12/17/19 08:00 98.1 F 86 18 121/61 Intake and Output 12/17/19 12/17/19 12/18/19 14:59 22:59 06:59 Other: # Voids 2 - Exam Lungs: bilateral: normal Chest: Normal S1, Normal S2 Extremities: Present: normal Abdomen: Present: normal appearance, soft. Absent: distention, tenderness Incision: Present: normal, dry, intact Uterus: Present: normal, firm Assessment and Plan Assessment: Postoperative day #3. Patient is resting without complaints. Vital signs are stable she is afebrile. Incision is intact and dry. Plan today is to continue routine postoperative care. Her baby is in special care but may or may not be going home today or tomorrow therefore she may go home today. (1) 39 weeks gestation of Current Visit: No Status: Acute Code(s): Z3A.39 - 39 WEEKS GESTATION OF SNOMED Code(s): 37536932 (2) Previous delivery affecting Current Visit: No Status: Acute Code(s): O34.219 - MATERNAL CARE FOR UNSP TYPE SCAR FROM PREVIOUS DEL SNOMED Code(s): 361415930 (3) Family planning Current Visit: No Status: Acute Code(s): Z30.09 - ENCOUNTER FOR OTH GENERAL CNSL AND ADVICE ON CONTRACEPTION SNOMED Code(s): 683854818
--- NOTE | 2019-12-18 06:52 | P.DS ---
Providers Date of admission: 12/15/19 05:50 Expected date of discharge: 12/18/19 Attending physician: Logan Paige Primary care physician: Stated None - Discharge Diagnosis(es) (1) 39 weeks gestation of Current Visit: No Status: Acute (2) Previous delivery affecting Current Visit: No Status: Acute (3) Family planning Current Visit: No Status: Acute Hospital Course: Please see dictated H&P for intimate details of this patient's admission. Brief summary is a pleasant 34-year-old 3 para 2 female 39 weeks gestation admitted to labor and delivery for elective repeat section and also bilateral partial salpingectomy. Patient undergoes above-named surgeries. Please see dictated operative note. Postoperatively she is anemic and she is started on some iron therapy. She is asymptomatic from this. On postoperative day #3 patient's felt be stable for discharge home follow up with me in 1 week. Procedures: Repeat low transverse section and bilateral partial salpingectomy Patient Condition at Discharge: Good Plan - Discharge Summary New Discharge Prescriptions: New Ibuprofen [Motrin] 600 mg PO Q6HR PRN #40 tab PRN Reason: Mild Pain Or Fever >= 100.5 Iron Ag/C/B12/Ca/Suc.acid/Stom [Multigen] 1 each PO DAILY #30 tab HYDROcodone/APAP 5-325MG [[place] 5-325] 1 each PO Q4HR PRN #18 tab PRN Reason: Moderate Pain No Action Pnv with Ca,No.72/Iron/FA [ Plus Multivitamin Tab] 1 each PO DAILY Discharge Medication List Pnv with Ca,No.72/Iron/FA [ Plus Multivitamin Tab] 1 each PO DAILY 12/12/13 [History] HYDROcodone/APAP 5-325MG [[place] 5-325] 1 each PO Q4HR PRN #18 tab 12/17/19 [Rx] Ibuprofen [Motrin] 600 mg PO Q6HR PRN #40 tab 12/17/19 [Rx] Iron Ag/C/B12/Ca/Suc.acid/Stom [Multigen] 1 each PO DAILY #30 tab 12/17/19 [Rx] Follow up Appointment(s)/Referral(s): Logan Paige MD [STAFF PHYSICIAN] - 12/24/19 8:45 am (Please see me on [address] 15 at 9:45 AM for a check as well.) Patient Instructions/Handouts: (DC) Activity/Diet/Wound Care/Special Instructions: No heavy lifting or strenuous activity for 6 weeks. No intercourse or anything per vagina for 6 weeks. Please call if any fever, chills, excessive vaginal bleeding, and/or abdominal pain Discharge Disposition: HOME SELF-CARE
[2019-12-18] MEDS: SENNOSIDES-DOCUSATE SODIUM 1 EACH TAB PO SCH (08:11)
[2019-12-18] MEDS: IRON AG/C/B12/CA/SUC.ACID/STOM 1 EACH TAB PO SCH (10:02)
[2019-12-18 15:44] VITALS: BP 116/74; PULSE 88; TEMP 98.1
--- NOTE | 2019-12-20 23:54 | CDI ---
Documentation Clarification Form Date:12/21/2019 From:Rakesh Thao Phone: If you have a question about this query, please contact Flora Haskins, Jig Inspector at [phone] between 8am and 5pm. Admit Date: 12/15/2019 Discharge Date:12/18/2019 Patient Name: Oneyda Bustillos Visit Number: [id number] ATTENTION: The Clinical Documentation Specialists (CDI) and [facility] Coding Staff appreciate your assistance in clarifying documentation. Please respond to the clarification below the line at the bottom and electronically sign. The CDI & [facility] Coding staff will review the response and follow-up if needed. Please note: Queries are made part of the Legal Health Record. If you have any questions, please contact the author of this message via ITS. Dear Logan Oh MD., Anemia is documented in the Discharge summary as "Postoperatively she is anemic and she is started on some iron therapy". History/Risk Factors: , Mitral insufficiency Hemoglobin: 7.8L Hematocrit: 24.5L Treatment: Iron therapy, Iron Ag/C/B12/Ca/Suc.acid/Stom [Multigen] 1 each PO DAILY #30 tab 12/17/19 [Rx] In order to capture the severity of condition, please clarify the type of anemia and etiology if known:. Acute blood loss anemia Iron deficiency anemia Unable to determine Other, please specify Acute blood loss anemia MTDD
== END 2019-12-18 15:45 | disposition home or self-care (01) | DRG 784 ==
LOC: 4FBP 05:50
PROVIDERS: ADMIT Obstetrics & Gynecology; ATTEND Obstetrics & Gynecology
PROC: 0UB70ZZ Excision of Bilateral Fallopian Tubes, Open Approach (ICD-10-PCS; principal; 2019-12-15 08:30)
PROC: 10D00Z1 Extraction of Products of Conception, Low, Open Approach (ICD-10-PCS; principal; 2019-12-15 08:30)
DX: O34.211 Maternal care for low transverse scar from previous cesarean delivery (principal); D62 Acute posthemorrhagic anemia; Z30.2 Encounter for sterilization; I34.0 Nonrheumatic mitral (valve) insufficiency; Z3A.39 39 weeks gestation of pregnancy; Z37.0 Single live birth; O99.02 Anemia complicating childbirth
CPT/HCPCS: 85025; 86850; 86900; 86901; 88302

== ENCOUNTER → 2022-10-29 | Outpatient (CLI) | payer OTHER ==
--- NOTE | 2022-10-30 09:24 | CA ---
Transthoracic Echo Report Name: Oneyda Bustillos Age: 37 Gender: F : 1985 Exam Date: 10/29/2022 18:03 Exam Location: [place] [facility] Ht (in): 60 Wt (lb): 125 Ordering Physician: Marlena Rodriguez MD Attending/Referring Phys: Grocery Stocker Tessie Gilman RDCS Procedure CPT: Indications: I34.1 NONRHEUMATIC MITRAL PROLAPSE Cardiac Hx: hx of PVS'S Technical Quality: Good Contrast 1: Total Dose (mL): Contrast 2: Total Dose (mL): MEASUREMENTS (Male / Female) Normal Values 2D ECHO LV Diastolic Diameter PLAX 4.4 cm 4.2 - 5.9 / 3.9 - 5.3 cm LV Systolic Diameter PLAX 2.6 cm IVS Diastolic Thickness 0.8 cm 0.6 - 1.0 / 0.6 - 0.9 cm LVPW Diastolic Thickness 1.0 cm 0.6 - 1.0 / 0.6 - 0.9 cm LV Relative Wall Thickness 0.4 RV Internal Dim ED PLAX 2.6 cm LA Systolic Diameter LX 3.3 cm 3.0 - 4.0 / 2.7 - 3.8 cm LA Volume 46.6 cm??? 18 - 58 / 22 - 52 cm??? M-MODE Aortic Root Diameter MM 2.6 cm MV E Point Septal Separation 0.4 cm AV Cusp Separation MM 2.1 cm DOPPLER AV Peak Velocity 156.1 cm/s AV Peak Gradient 9.7 mmHg MV Area PHT 4.6 cm??? MR Peak Velocity 494.2 cm/s MR Peak Gradient 97.7 mmHg Mitral E Point Velocity 98.4 cm/s Mitral A Point Velocity 71.6 cm/s Mitral E to A Ratio 1.4 MV Deceleration Time 163.5 ms MV E' Velocity 16.2 cm/s Mitral E to MV E' Ratio 6.1 TR Peak Velocity 224.8 cm/s TR Peak Gradient 20.2 mmHg Right Ventricular Systolic Press 23.9 mmHg FINDINGS Left Ventricle Left ventricular ejection fraction is estimated at 60-65 %. Left ventricular cavity size normal. Left ventricular wall thickness normal. Right Ventricle Normal right ventricular size and function. Right ventricular systolic pressure within normal limits. Right Atrium Normal right atrial size. Left Atrium Normal left atrial size. Mitral Valve Structurally normal mitral valve. Mild mitral regurgitation. Mild thickening of the anterior mitral valve leaflet. Mild thickening of the posterior mitral valve leaflet. Aortic Valve Trileaflet aortic valve. No aortic valve stenosis or regurgitation. Tricuspid Valve Structurally normal tricuspid valve. Trace to mild tricuspid regurgitation. Pulmonic Valve Structurally normal pulmonic valve. Trace pulmonic regurgitation. Pericardium No pericardial effusion. Aorta Normal size aortic root and proximal ascending aorta. CONCLUSIONS Left ventricular ejection fraction 60-65% Normal left ventricular wall thickness Mild mitral regurgitation Trace to mild tricuspid regurgitation No pericardial effusion Previewed by: Dr. Srikanth Chavez DO (Electronically Signed) Final Date: 30 October 2022 09:22
== END | disposition home or self-care (01) ==
LOC: RADECHMAIN 17:57
PROVIDERS: ATTEND Internal Medicine
DX: I08.1 Rheumatic disorders of both mitral and tricuspid valves (principal)
CPT/HCPCS: 93306

== ENCOUNTER → 2024-07-01 | Outpatient (CLI) | payer BC ==
--- NOTE | 2024-07-01 12:37 | MR ---
EXAMINATION TYPE: MR iac wo/w con DATE OF EXAM: 07/01/2024 11:18 AM COMPARISON: None. CLINICAL INDICATION: Female, 39 years old with history of H91.90 hearing loss, right ear hearing loss TECHNIQUE: Multiplanar, multisequence images of the brain and brainstem were acquired before and aft er administration of 5.5 mL Gadobutrol. Diffusion weighted imaging was performed. Additional coned- down sequences through the internal auditory canals and posterior cranial fossa before and after IV c ontrast administration. FINDINGS: Diffusion weighted images demonstrate no evidence of an acute ischemic lesion in the brain. T2/FLAIR weighted sequences show no abnormal bright white matter signal change. Midline structures demonstrate partially empty sella but otherwise normal morphology. The craniocerv ical junction is normal. Brain volume is age appropriate. No hydrocephalus. There is no evidence of an acute intracranial hemorrhage, infarct, mass, mass-effect or an extra-axia l fluid collection. There is no cerebellopontine angle mass. The internal auditory canals are symmetric. Brainstem and skull base abnormalities are not seen. Post contrast images demonstrate no evidence of pathologic enhancement in the posterior cranial lacey a or the internal auditory canals. There is no abnormal enhancement of the labyrinths. Leftward nasal septal deviation and trace [place] thickening ethmoid air cells. Globes are intact . IMPRESSION: 1. Unremarkable brain MRI. No specific abnormality on acoustic MRI. 2. Leftward nasal septal deviation and scattered mild chronic ethmoid sinus disease. [facility], Workstation: [id number], 07/01/2024 12:35 PM
== END | disposition home or self-care (01) ==
LOC: RADMRIMAIN 10:15
PROVIDERS: ATTEND Otolaryngology
DX: J34.2 Deviated nasal septum (principal); J32.2 Chronic ethmoidal sinusitis; H91.90 Unspecified hearing loss, unspecified ear
CPT/HCPCS: 70553; A9585